=== PATIENT | female | born 1955 | race American Indian/Alaskan Native ===

== ENCOUNTER 2017-02-04 15:51 | Outpatient (CLI) | payer BC ==
--- NOTE | 2017-02-05 09:50 | XRay Report ---
BILATERAL ELBOW 2 VIEWS History: Rheumatoid arthritis Findings: Normal bone mineralization. No acute osseous findings or joint pathology are identified. No erosive joint pathology. The joint effusion. There is soft tissue prominence/swelling overlying the right olecranon which may represent olecranon bursitis. Impression: Unremarkable bony structures. Correlate for olecranon bursitis on the right side. See above.
--- NOTE | 2017-02-05 10:03 | XRay Report ---
BILATERAL HAND RADIOGRAPHS INDICATION: Rheumatoid arthritis. COMPARISON: None similar. FINDINGS: AP and lateral bilateral hand radiographs demonstrate overall intact articulation. Mild osteoarthritic changes noted at few interphalangeal joints, greatest involving the thumbs. Left second digit proximal phalanx base demonstrates a benign, possibly developmental though nonspecific partial, 4-5 mm horizontal lucency creating a spur-like appearance medially at the second MCP joint. Osteopenia. Unremarkable soft tissues. CONCLUSION: No acute significant abnormality with few hand osteoarthritic changes and other findings, as above. Thank you for the opportunity to participate in this patient's care.
== END 2017-02-04 15:52 | disposition home or self-care (01) ==
LOC: XRAY 15:51
PROVIDERS: ATTEND Internal Medicine Rheumatology
DX: M06.89 Other specified rheumatoid arthritis, multiple sites (principal); M19.042 Primary osteoarthritis, left hand; M19.041 Primary osteoarthritis, right hand; M06.30 Rheumatoid nodule, unspecified site; I10 Essential (primary) hypertension

== ENCOUNTER 2018-03-28 16:52 | Emergency (ER) | payer BC ==
[2018-03-28 17:50] VITALS: BP 133/70
[2018-03-28] MEDS ORDERED: TORADOL IM ONE (18:05)
--- NOTE | 2018-03-28 18:41 | XRay Report ---
FINAL REPORT EXAM: XR SHOULDER 2+V RT HISTORY: right shoulder pain TECHNIQUE: Frontal and Y-views of the right shoulder were obtained Comparison: None FINDINGS: Evaluation is limited by nonstandard positioning on the frontal views. There is the appearance of dislocation of the humeral head relative to the glenoid on the frontal views that is not clearly demonstrated on the Y-views. Whether or not this is real or artifact is unclear. There is no definite evidence of fracture. IMPRESSION: 1. Study degraded by nonstandard frontal views. 2. A dislocation cannot entirely be excluded with this study. 3. No definite evidence of fracture. Recommend obtaining standard frontal views. Alternatively CT may be helpful.
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
--- NOTE | 2018-03-28 21:16 | Cat Scan Report ---
FINAL REPORT EXAM: CT UPPER EXTREM RT WO CON HISTORY: right shoulder pain with abnormal xray TECHNIQUE: Axial helical imaging through the right shoulder with sagittal and coronal reformatted images obtained. Comparison: X-ray right shoulder also performed today FINDINGS: There is no evidence of acute fracture or subluxation. There is degenerative change of the right acromioclavicular joint with joint space loss and subchondral cyst formation. There is no evidence of significant degenerative change of the glenohumeral joint. The soft tissues are unremarkable. There is deformity of the costovertebral articulation of the right 4th rib which may represent sequela of previous fracture. IMPRESSION: 1. No evidence of acute fracture or subluxation. 2. Degenerative change right acromioclavicular joint. 3. Deformity of the costovertebral articulation of the right 4th rib which may represent sequela of previous fracture.
== END 2018-03-28 21:45 | disposition home or self-care (01) ==
LOC: ED 16:52
DX: S46.911A Strain of unspecified muscle, fascia and tendon at shoulder and upper arm level, right arm, initial encounter (principal); I10 Essential (primary) hypertension; E11.9 Type 2 diabetes mellitus without complications; M06.9 Rheumatoid arthritis, unspecified; Z88.0 Allergy status to penicillin; W20.8XXA Other cause of strike by thrown, projected or falling object, initial encounter; Y93.89 Activity, other specified; Y92.89 Other specified places as the place of occurrence of the external cause; Y99.8 Other external cause status
CPT/HCPCS: 29105; 73030; 73200; 93005; 93010; 96372; 99284; J1885

== ENCOUNTER 2019-01-30 08:22 | Emergency (ER) | payer BC ==
[2019-01-30] MEDS ORDERED: ASPIRIN PO ONE (08:31)
[2019-01-30 08:53] LABS: Basophils # (Auto) 0.1 K/mm3 (0.0-0.1); Basophils % (Auto) 1.1 % (0.0-1.8); Eosinophils # (Auto) 0.2 K/mm3 (0.0-0.4); Eosinophils % (Auto) 3.6 % (0.0-4.3); Hematocrit 36.5 % (30.3-42.9); Hemoglobin 12.4 gm/dl (10.1-14.3); Lymphocytes # (Auto) 1.9 K/mm3 (1.2-5.4); Lymphocytes % (Auto) 28.7 % (13.4-35.0); Mean Corpuscular HGB Conc 34 % (30-34); Mean Corpuscular Volume 91 fl (79-97); Monocytes # (Auto) 0.6 K/mm3 (0.0-0.8); Monocytes % (Auto) 9.4 % (0.0-7.3); Red Cell Distribution Width 14.6 % (13.2-15.2)
[2019-01-30 09:22] LABS: BUN/Creatinine Ratio 29; Blood Urea Nitrogen 26 mg/dL (7-17); Calcium 10.9 mg/dL (8.4-10.2); Hemolysis Index 54
--- NOTE | 2019-01-30 09:31 | XRay Report ---
CHEST 2 VIEWS INDICATION / CLINICAL INFORMATION: Chest Pain. COMPARISON: None available. FINDINGS: SUPPORT DEVICES: None. HEART / MEDIASTINUM: Normal heart size. Atherosclerosis in the thoracic aorta. LUNGS / PLEURA: No significant pulmonary or pleural abnormality. No pneumothorax. ADDITIONAL FINDINGS: No significant additional findings. IMPRESSION: 1. No acute findings. Signer Name: Corey Hyman MD Signed: 01/30/2019 9:27 AM Workstation Name: [id number]
[2019-01-30 09:33] LABS: Platelet Count 148 K/mm3 (140-440)
[2019-01-30] MEDS ORDERED: DECADRON IV ONE (11:14)
[2019-01-30] MEDS ORDERED: TORADOL IV ONE (11:14)
[2019-01-30] MEDS ORDERED: NACL 0.9% 1000 ML 1,000 ML IV ONE (11:14)
[2019-01-30] MEDS ORDERED: NORMODYNE IV ONE (11:21)
--- NOTE | 2019-01-30 11:27 | Emergency Department Report ---
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 I seen her previously. She has a history of an admission for chest pain and a negative myocardial perfusion scan. She presents to the emergency department with what appears to be migratory polyarthralgias related to her rheumatoid arthritis. She states "I think it's my rheumatoid". She also states that she has had acute joint swelling of the PIP joint of her right index finger over this time. Patient complains of right shoulder pain which later migrated to the left shoulder. Then she began to experience pain in the midthoracic area. She states these areas would exacerbate the pain with movement. Pain was moderate in intensity and not specifically radiating. However, with the midthoracic pain she states that she felt some tingling in her anterior chest. She did not experience chest tightness or pressure. She denied nausea vomiting sweating or significant cough or breathing difficulty. She also denied any leg pain or swelling. She's not had fever over this period of time. -: Gradual Location: chest, back, upper extremity Radiation: non-radiation Severity scale (0 -10): 7 Quality: aching Consistency: intermittent Improves with: none Worsens with: movement Associated Symptoms: denies other symptoms Treatments Prior to Arrival: NSAID - Related Data Home Medications Medication Instructions Recorded Confirmed Last Taken Atenolol [Tenormin] 50 mg PO DAILY 05/13/16 05/13/16 Unknown Insulin NPH Hum/Reg Insulin Hm 100 unit SQ 05/13/16 Unknown [HumuLIN 70-30 Vial] Previous Rx's Medication Instructions Recorded Last Taken Type Pantoprazole [Protonix TAB] 20 mg PO QDAY #30 tablet 05/15/16 Unknown Rx Cyclobenzaprine [Flexeril] 10 mg PO QHS PRN #10 tablet 03/28/18 Unknown Rx Ibuprofen [Motrin] 600 mg PO Q8H PRN #30 tablet 03/28/18 Unknown Rx Amlodipine Besylate [Norvasc] 5 mg PO DAILY #30 tablet 01/30/19 Unknown Rx traMADol [Ultram] 50 mg PO Q6HR PRN #14 tablet 01/30/19 Unknown Rx Allergies Allergy/AdvReac Type Severity Reaction Status Date / Time penicillin Allergy Unknown Verified 05/13/16 15:32 ED Review of Systems ROS: Stated complaint: CHEST PAIN/BACK PAIN Other details as noted in HPI Constitutional: denies: chills, fever Eyes: denies: eye pain, eye discharge, vision change ENT: denies: ear pain, throat pain Respiratory: denies: cough, shortness of breath, wheezing Cardiovascular: as per HPI. denies: palpitations Endocrine: no symptoms reported Gastrointestinal: denies: abdominal pain, nausea, diarrhea Genitourinary: denies: urgency, dysuria, discharge Musculoskeletal: back pain, joint swelling, arthralgia Skin: denies: rash, lesions Neurological: denies: headache, weakness, paresthesias Psychiatric: denies: anxiety, depression Hematological/Lymphatic: denies: easy bleeding, easy bruising ED Past Medical Hx - Past Medical History Previous Medical History?: Yes Hx Hypertension: Yes Hx Diabetes: Yes Hx Arthritis: Yes (RA) - Surgical History Past Surgical History?: Yes Hx Appendectomy: Yes Additional Surgical History: . left foot surgery. tubal ligation - Social History Smoking Status: Never Smoker Substance Use Type: None - Medications Home Medications: Home Medications Medication Instructions Recorded Confirmed Last Taken Type Atenolol [Tenormin] 50 mg PO DAILY 05/13/16 05/13/16 Unknown History Insulin NPH Hum/Reg Insulin Hm 100 unit SQ 05/13/16 Unknown History [HumuLIN 70-30 Vial] Pantoprazole [Protonix TAB] 20 mg PO QDAY #30 05/15/16 Unknown Rx Cyclobenzaprine [Flexeril] 10 mg PO QHS PRN #10 tablet 03/28/18 Unknown Rx Ibuprofen [Motrin] 600 mg PO Q8H PRN #30 tablet 03/28/18 Unknown Rx Amlodipine Besylate [Norvasc] 5 mg PO DAILY #30 tablet 01/30/19 Unknown Rx traMADol [Ultram] 50 mg PO Q6HR PRN #14 tablet 01/30/19 Unknown Rx ED Physical Exam - General Limitations: No Limitations General appearance: alert, in no apparent distress - Head Head exam: Present: atraumatic, normocephalic - Eye Eye exam: Present: normal appearance. Absent: scleral icterus - ENT ENT exam: Present: mucous membranes moist - Neck Neck exam: Present: normal inspection - Respiratory Respiratory exam: Present: normal lung sounds bilaterally. Absent: respiratory distress - Cardiovascular Cardiovascular Exam: Present: regular rate, normal rhythm. Absent: systolic murmur, diastolic murmur, rubs, gallop - GI/Abdominal GI/Abdominal exam: Present: soft, normal bowel sounds. Absent: distended, tenderness, guarding, rebound, rigid - Extremities Exam Extremities exam: Present: other (patient has a very large rheumatoid nodule Lis teria aspect of her right elbow. She has synovial thickening of the fifth finger PIP. She has multiple dorsal and rheumatoid nodules on the left.). Absent: calf tenderness - Back Exam Back exam: Present: normal inspection. Absent: CVA tenderness (R), CVA te nderness (L), muscle spasm, paraspinal tenderness, vertebral tenderness - Neurological Exam Neurological exam: Present: alert, oriented X3 - Psychiatric Psychiatric exam: Present: normal affect, normal mood - Skin Skin exam: Present: warm, dry, intact, normal color. Absent: rash ED Course Vital Signs 01/30/19 01/30/19 01/30/19 08:28 11:21 11:30 Temperature 98.4 F Pulse Rate 69 64 61 Respiratory 16 14 17 Rate Blood Pressure 172/92 165/85 O2 Sat by Pulse 98 97 100 Oximetry 01/30/19 01/30/19 01/30/19 11:35 11:45 12:00 Temperature Pulse Rate 61 64 64 Respiratory 15 13 Rate Blood Pressure 165/85 158/80 153/79 O2 Sat by Pulse 99 99 Oximetry 01/30/19 12:15 Temperature Pulse Rate 64 Respiratory 12 Rate Blood Pressure 150/76 O2 Sat by Pulse 98 Oximetry - Reevaluation(s) Reevaluation #1: Patient states symptoms have resolved with Toradol and Decadron. She has been advised to watch her sugar. She will be taken with HCTZ as it seems to be associated with body depletion and make cords hypercalcemia as well. We will substitute Norvasc. She'll be referred to endocrinology and her primary care physician. She is asymptomatic at time of discharge. 01/30/19 13:56 ED Medical Decision Making - Lab Data Result diagrams: 01/30/19 08:39 01/30/19 08:39 Laboratory Results - last 24 hr 01/30/19 01/30/19 01/30/19 08:39 08:39 12:49 WBC 6.7 RBC 4.00 Hgb 12.4 Hct 36.5 MCV 91 MCH 31 MCHC 34 RDW 14.6 Plt Count 148 Lymph % (Auto) 28.7 Douglas % (Auto) 9.4 H Eos % (Auto) 3.6 Baso % (Auto) 1.1 Lymph # 1.9 Douglas # 0.6 Eos # 0.2 Baso # 0.1 Seg Neutrophils % 57.2 Seg Neutrophils # 3.8 PT 13.5 INR 1.06 APTT 72.0 H* Sodium 142 Potassium 3.6 Chloride 100.9 Carbon Dioxide 26 Anion Gap 19 BUN 26 H Creatinine 0.9 Estimated GFR > 60 BUN/Creatinine Ratio 29 Glucose 103 H Calcium 10.9 H Phosphorus Magnesium Total Bilirubin Direct Bilirubin AST ALT Alkaline Phosphatase Troponin T < 0.010 NT-Pro-B Natriuret Pep Total Protein Albumin Albumin/Globulin Ratio PTH Intact 01/30/19 01/30/19 12:49 12:49 WBC RBC Hgb Hct MCV MCH MCHC RDW Plt Count Lymph % (Auto) Douglas % (Auto) Eos % (Auto) Baso % (Auto) Lymph # Douglas # Eos # Baso # Seg Neutrophils % Seg Neutrophils # PT INR APTT Sodium Potassium Chloride Carbon Dioxide Anion Gap BUN Creatinine Estimated GFR BUN/Creatinine Ratio Glucose Calcium Phosphorus 3.00 Magnesium 1.30 L Total Bilirubin 0.40 Direct Bilirubin < 0.2 AST 57 H ALT 58 H Alkaline Phosphatase 154 H Troponin T < 0.010 NT-Pro-B Natriuret Pep 253.3 Total Protein 7.4 Albumin 3.9 Albumin/Globulin Ratio 1.1 PTH Intact 79.50 H Critical care attestation.: If time is entered above; I have spent that time in minutes in the direct care of this critically ill patient, excluding procedure time. ED Disposition Clinical Impression: Rheumatoid arthritis flare, Hyperparathyroidism, Hypercalcemia, Volume depletion Disposition: TO HOME OR SELFCARE Is pt being admited?: No Does the pt Need Aspirin: No Condition: Stable Instructions: Hypertension (ED), Hypercalcemia (ED), Rheumatoid Arthritis (ED) Additional Instructions: Stopping HCTZ. Start Norvasc. Ultram if needed for pain. Follow-up with your primary care provider and an referral management liaison such as Dr. Layo. Return any acute change or problem. Check your sugar frequently over the next few days as it may arise from the steroid injection. Increase fluids. Prescriptions: Amlodipine Besylate [Norvasc] 5 mg PO DAILY #30 tablet traMADol [Ultram] 50 mg PO Q6HR PRN #14 tablet PRN Reason: Pain Referrals: MILDRED PORTER MD [Staff Physician] - 2-3 Days Time of Disposition: 14:01
[2019-01-30] MEDS ORDERED: ASPIRIN ONE (11:41)
[2019-01-30 13:21] LABS: INR 1.06 (0.87-1.13)
[2019-01-30 13:37] LABS: Alanine Aminotransferase 58 units/L (7-56); Albumin 3.9 g/dL (3.9-5)
[2019-01-30 13:38] LABS: Bilirubin,Direct < 0.2 mg/dL (0-0.2)
[2019-01-30 15:05] VITALS: BP 162/83
== END 2019-01-30 15:06 | disposition home or self-care (01) ==
LOC: ED 08:22
DX: M06.812 Other specified rheumatoid arthritis, left shoulder (principal); M06.811 Other specified rheumatoid arthritis, right shoulder; E21.3 Hyperparathyroidism, unspecified; E86.9 Volume depletion, unspecified; I10 Essential (primary) hypertension; E11.9 Type 2 diabetes mellitus without complications; Z90.49 Acquired absence of other specified parts of digestive tract; Z98.890 Other specified postprocedural states; Z98.51 Tubal ligation status; Z79.899 Other long term (current) drug therapy; Z79.4 Long term (current) use of insulin; Z88.0 Allergy status to penicillin
CPT/HCPCS: 36415; 71046; 80048; 80076; 83735; 83880; 83970; 84100; 84484; 85025; 85610; 85730; 93005; 93010; 96361; 96374; 96375; 99284; J1100; J1885; J7030

== ENCOUNTER 2019-03-23 14:50 | Outpatient (CLI) | payer BC ==
[2019-03-23 16:13] LABS: Calcium, Urine 0.8 mg/dL (6.8-21.3); Creatinine,Urine 134.6 mg/dL (0.1-20.0)
[2019-03-23 17:00] LABS: Alanine Aminotransferase 50 units/L (7-56); Albumin 4.4 g/dL (3.9-5); BUN/Creatinine Ratio 20; Blood Urea Nitrogen 16 mg/dL (7-17); Calcium 10.5 mg/dL (8.4-10.2); Hemolysis Index 1
== END 2019-03-23 14:51 | disposition home or self-care (01) ==
LOC: LAB 14:50
DX: E21.5 Disorder of parathyroid gland, unspecified (principal); I10 Essential (primary) hypertension
CPT/HCPCS: 36415; 80053; 82340; 82565; 82570; 82575; 82652; 83970; 84100; 84443

== ENCOUNTER 2019-04-26 15:33 | Outpatient (CLI) | payer BC ==
--- NOTE | 2019-04-27 16:35 | Mammography Report ---
DIGITAL SCREENING MAMMOGRAM WITH CAD, 04/26/2019 INDICATION: Routine screening mammography. TECHNIQUE: Digital bilateral 2D mammography was obtained in the craniocaudal and mediolateral obliq ue projections. This examination was interpreted with the benefit of Computer-Aided Detection analysi s. COMPARISON: 03/20/2015 FINDINGS: Breast Density: There are scattered areas of fibroglandular density. Bilateral retroareolar asymmetries require additional imaging. No architectural distortion or suspici ous calcifications. Bilateral axillary lymph nodes are unchanged compared to the previous exam. IMPRESSION: Bilateral asymmetries requiring additional workup. Recommend recall for bilateral spot co mpression views and bilateral breast ultrasound if needed. Follow up recommendation: Special View: Spot Category 0: Incomplete. Needs additional imaging evaluation and/or prior mammograms for comparison. A "normal" or negative report should not discourage follow up or biopsy of a clinically significant f inding. A written summary of these findings will be mailed to the patient. The patient will be entered into a mammography reporting system which will generate a reminder letter for the patient's next appointmen t at the appropriate interval. The [employer] recommends yearly mammograms starting at age 40 and continuing as l bobbi as a woman is in good health. Breast MRI is recommended for women with an approximate 20-25% or greater lifetime risk of breast cancer, including women with a strong family history of breast or ova thom cancer or who have been treated for Hodgkin's disease. Signer Name: Adiel Berry MD Signed: 04/27/2019 4:30 PM Workstation Name: [id number]
== END 2019-04-26 15:34 | disposition home or self-care (01) ==
LOC: MAMMO 15:33
PROVIDERS: ATTEND Family Medicine
DX: Z12.31 Encounter for screening mammogram for malignant neoplasm of breast (principal); I10 Essential (primary) hypertension; M19.90 Unspecified osteoarthritis, unspecified site
CPT/HCPCS: 77067